=== PATIENT | male | born 1965 | race African-American/Black ===

== ENCOUNTER 2021-02-11 06:33 | Inpatient (IN) ==
[2021-02-11] MEDS ORDERED: SODIUM CHLORIDE 0.9% 1,000 ML IV STA ×2 (09:32→11:38)
[2021-02-11 10:12] LABS: Basophils % 0.4 % (0.0-0.8); Eosinophils # 0.1 10*3/uL (0.0-0.87); Eosinophils % 1.3 % (0.00-10.9); Hematocrit 47.5 VOL% (42.0-52.0); Hemoglobin 15.3 GM/DL (14.0-18.0); Immature Granulocytes % 1.1 %; Immature Granulocytes Absolute 0.06 #; Lymphocytes # 1.5 10*3/uL (1.4-4.0); Lymphocytes % 28.1 % (21.2-54.2); Mean Corpuscular HGB Conc 32.2 GM/DL (32-36); Mean Corpuscular Volume 91.2 FL (87-102); Neutrophils % 54.1 % (38.7-73.9); Platelet Count 99 T/CUMM (130-400); Red Blood Count 5.21 MC/CUMM (3.8-5.5); White Blood Count 5.5 T/CUMM (4-12)
[2021-02-11 10:29] LABS: Platelet Estimate Decreased
[2021-02-11 10:30] LABS: Burr Cells 1+; Macrocytosis 2+
[2021-02-11 10:31] LABS: Anisocytosis 2+
[2021-02-11 11:45] LABS: Alanine Aminotransferase 1584 U/L (16-61); Albumin 2.8 G/DL (3.4-5.0); Alkaline Phosphatase 182 U/L (45-117); Aspartate Amino Transferase 1001 U/L (0-37); Blood Urea Nitrogen 53 MG/DL (7-18); Carbon Dioxide 20 MMOL/L (21-32); Estimated Glom Filtration Rate 31 ML/MIN; Glucose 99 MG/DL (74-106); Osmolality,Calculated 283.1 MOS/KG (273-304); Potassium 4.7 MMOL/L (3.5-5.1); Sodium 135 MMOL/L (136-145); Total Protein 7.9 G/DL (6.4-8.2)
[2021-02-11 12:16] LABS: INR 4.8; Partial Thromboplastin Time 51.7 SECS (23.9-33.8)
[2021-02-11 12:19] LABS: PT Patient Result 47.7 SECS (10.5-12.0)
[2021-02-11 12:52] LABS: Bilirubin,Urine Negative (Negative); Blood, Urine Moderate mg/dL (Negative); Glucose,Urine (UA) >=500 mg/dL (Negative); Hyaline Casts,Urine 34 /LPF (0-3); Ketones,Urine Negative (Negative); Mucus,Urine Occasional /LPF (Occasional); Nitrite,Urine Negative (Negative); Protein,Urine >=500 MG/DL; RBC,Urine 13 /HPF (0-4); Squamous Epithelial Cell,Urine Occasional /HPF (0-10); Urine Appearance CLOUDY (Clear); Urine Color Amber (Yellow); Urine Specific Gravity 1.016 (1.001-1.035)
[2021-02-11] MEDS ORDERED: cefTRIAXone 1,000 MG in SODIUM CHLORIDE 0.9% 100 ML IV STA (12:56)
[2021-02-11] MEDS ORDERED: ALBUTEROL 2.5 MG/3 ML NEB RESP TX PRN (16:38)
[2021-02-11] MEDS ORDERED: ONDANSETRON 4 MG/2 ML VIAL IV PRN (16:38)
[2021-02-11] MEDS ORDERED: HYDROCORTISONE 100 MG VIAL IV STA (16:38)
[2021-02-11] MEDS ORDERED: LACTATED RINGERS 1,000 ML IV SCH (17:00)
[2021-02-11] MEDS: SODIUM CHLORIDE 0.9% 1,000 ML IV SCH ×2 (17:20→17:44)
[2021-02-11] MEDS: ENOXAPARIN 30 MG/0.3 ML SYRINGE SUBCUT SCH (17:27)
[2021-02-11] MEDS: DOBUTamine 500 MG/250 ML PREMIX IV PRN (17:44)
[2021-02-11] MEDS: levETIRAcetam 500 MG TABLET PO SCH (21:02)
[2021-02-12] MEDS: HYDROCORTISONE 100 MG VIAL IV SCH ×3 (00:09→17:55)
[2021-02-12 01:49] LABS: Basophils % 0.2 % (0.0-0.8); Eosinophils % 0.2 % (0.00-10.9); Hematocrit 43.4 VOL% (42.0-52.0); Hemoglobin 14.2 GM/DL (14.0-18.0); Immature Granulocytes % 1.2 %; Immature Granulocytes Absolute 0.05 #; Lymphocytes # 0.7 10*3/uL (1.4-4.0); Lymphocytes % 16.6 % (21.2-54.2); Mean Corpuscular HGB Conc 32.7 GM/DL (32-36); Mean Corpuscular Volume 88.8 FL (87-102); Mean Platelet Volume 13.2 FL (9.6-12.0); Monocytes % 7.9 % (1.7-12.7); Neutrophils % 73.9 % (38.7-73.9); Platelet Count 92 T/CUMM (130-400); Red Blood Count 4.89 MC/CUMM (3.8-5.5); Red Cell Distribution Width 18.4 % (9.3-17.3); White Blood Count 4.3 T/CUMM (4-12)
[2021-02-12 02:33] LABS: Albumin 2.3 G/DL (3.4-5.0); Bilirubin,Total 2.6 MG/DL (0.20-1.00); Calcium 8.4 MG/DL (8.5-10.1); Osmolality,Calculated 281.4 MOS/KG (273-304); Potassium 4.6 MMOL/L (3.5-5.1); Total Protein 6.9 G/DL (6.4-8.2)
[2021-02-12] MEDS: SODIUM CHLORIDE 0.9% 1,000 ML IV SCH ×2 (03:35→04:44)
[2021-02-12] MEDS: DOBUTamine 500 MG/250 ML PREMIX IV PRN ×2 (04:45→14:55)
[2021-02-12 05:10] LABS: INR 4.9; PT Patient Result 48.5 SECS (10.5-12.0)
[2021-02-12] MEDS: levETIRAcetam 500 MG TABLET PO SCH ×2 (08:54→22:00)
[2021-02-12] MEDS: PANTOPRAZOLE 40 MG TABLET PO SCH (08:54)
[2021-02-12] MEDS ORDERED: SODIUM BICARB INJ 150 MEQ in DEXTROSE 5% 1,000 ML IV SCH (09:00)
[2021-02-12] MEDS ORDERED: PANTOPRAZOLE 40 MG TABLET PO SCH (09:00)
[2021-02-12] MEDS ORDERED: SODIUM BICARB INJ 150 MEQ in DEXTROSE 5% 850 ML IV SCH (09:00)
[2021-02-12] MEDS ORDERED: HALOPERIDOL 5 MG/ML AMP IM ONE (12:55)
[2021-02-12] MEDS ORDERED: SODIUM BICARBONATE 50 MEQ/50 ML VIAL IV ONE (13:59)
[2021-02-12 15:47] LABS: Albumin 2.3 G/DL (3.4-5.0); Bilirubin,Total 2.7 MG/DL (0.20-1.00); Calcium 7.9 MG/DL (8.5-10.1); Osmolality,Calculated 284.1 MOS/KG (273-304); Potassium 4.1 MMOL/L (3.5-5.1); Total Protein 6.5 G/DL (6.4-8.2)
[2021-02-12] MEDS: ENOXAPARIN 30 MG/0.3 ML SYRINGE SUBCUT SCH (17:55)
[2021-02-12] MEDS ORDERED: DOBUTamine 500 MG/250 ML PREMIX IV SCH (18:01)
[2021-02-12] MEDS ORDERED: LORazepam 2 MG/1 ML VIAL IV PRN (18:33)
[2021-02-12] MEDS: SODIUM BICARB INJ 150 MEQ in DEXTROSE 5% 1,000 ML IV SCH (22:00)
[2021-02-13] MEDS: HYDROCORTISONE 100 MG VIAL IV SCH ×2 (02:05→19:45)
[2021-02-13 04:59] LABS: Hematocrit 37.1 VOL% (42.0-52.0); Hemoglobin 13.4 GM/DL (14.0-18.0); Immature Granulocytes % 0.7 %; Immature Granulocytes Absolute 0.04 #; Lymphocytes # 0.7 10*3/uL (1.4-4.0); Mean Corpuscular HGB Conc 36.1 GM/DL (32-36); Mean Corpuscular Volume 82.4 FL (87-102); Mean Platelet Volume 12.3 FL (9.6-12.0); Monocytes % 10.5 % (1.7-12.7); NRBC # 0.02 10*3/uL; Neutrophils % 76.8 % (38.7-73.9); Platelet Count 86 T/CUMM (130-400); Red Cell Distribution Width 17.2 % (9.3-17.3)
[2021-02-13 05:19] LABS: Hypochromasia Slight; Microcytosis Slight; Target Cells Few
[2021-02-13 05:20] LABS: Acanthocytes Few; INR 2.6; PT Patient Result 26.7 SECS (10.5-12.0); Platelet Estimate Decreased
[2021-02-13] MEDS: SODIUM BICARB INJ 150 MEQ in DEXTROSE 5% 1,000 ML IV SCH (05:20)
[2021-02-13 05:32] LABS: Albumin 2.3 G/DL (3.4-5.0); Bilirubin,Total 3.1 MG/DL (0.20-1.00); Calcium 8.1 MG/DL (8.5-10.1); Osmolality,Calculated 283.1 MOS/KG (273-304); Potassium 3.8 MMOL/L (3.5-5.1); Total Protein 6.5 G/DL (6.4-8.2)
[2021-02-13] MEDS ORDERED: LORazepam 2 MG/1 ML VIAL ONE (07:20)
[2021-02-13] MEDS ORDERED: HYDROCORTISONE 100 MG VIAL IV SCH (07:30)
[2021-02-13] MEDS ORDERED: DOBUTamine 500 MG/250 ML PREMIX IV SCH (09:10)
[2021-02-13] MEDS: PANTOPRAZOLE 40 MG TABLET PO SCH (11:06)
[2021-02-13] MEDS: levETIRAcetam 500 MG TABLET PO SCH ×2 (11:06→20:38)
[2021-02-13] MEDS: ENOXAPARIN 30 MG/0.3 ML SYRINGE SUBCUT SCH (19:43)
[2021-02-13] MEDS: METOPROLOL SUCCINATE XL 25 MG TABLET PO SCH (20:38)
[2021-02-14] MEDS: HYDROCORTISONE 100 MG VIAL IV SCH ×2 (06:28→19:50)
[2021-02-14 06:55] LABS: Basophils % 0.3 % (0.0-0.8); Hematocrit 44.6 VOL% (42.0-52.0); Immature Granulocytes % 0.5 %; Immature Granulocytes Absolute 0.03 #; Lymphocytes # 1.1 10*3/uL (1.4-4.0); Lymphocytes % 17.3 % (21.2-54.2); Mean Corpuscular HGB Conc 35.9 GM/DL (32-36); Mean Corpuscular Volume 83.8 FL (87-102); Mean Platelet Volume 12.8 FL (9.6-12.0); Monocytes % 9.8 % (1.7-12.7); NRBC # 0.04 10*3/uL; Neutrophils % 72.1 % (38.7-73.9); Platelet Count 84 T/CUMM (130-400); Red Blood Count 5.32 MC/CUMM (3.8-5.5); Red Cell Distribution Width 18.5 % (9.3-17.3); White Blood Count 6.5 T/CUMM (4-12)
[2021-02-14 07:34] LABS: Albumin 2.5 G/DL (3.4-5.0); Bilirubin,Total 3.6 MG/DL (0.20-1.00); Calcium 8.9 MG/DL (8.5-10.1); Osmolality,Calculated 277.7 MOS/KG (273-304); Potassium 4.7 MMOL/L (3.5-5.1); Total Protein 7.6 G/DL (6.4-8.2)
[2021-02-14 08:23] LABS: Hypochromasia Slight; Microcytosis 1+; Target Cells Slight
[2021-02-14 08:24] LABS: Anisocytosis 1+; Platelet Estimate Decreased; Polychromasia Slight
[2021-02-14] MEDS: levETIRAcetam 500 MG TABLET PO SCH ×2 (10:31→20:42)
[2021-02-14] MEDS: METOPROLOL SUCCINATE XL 25 MG TABLET PO SCH ×2 (10:32→20:42)
[2021-02-14] MEDS: PANTOPRAZOLE 40 MG TABLET PO SCH (10:32)
[2021-02-14] MEDS ORDERED: FUROSEMIDE 40 MG/4 ML VIAL IV ONE (14:22)
[2021-02-14] MEDS ORDERED: FUROSEMIDE 80 MG TABLET PO SCH (14:30)
[2021-02-14] MEDS: ENOXAPARIN 30 MG/0.3 ML SYRINGE SUBCUT SCH (17:22)
[2021-02-14] MEDS ORDERED: SODIUM CHLORIDE 0.9% 250 ML IV ONE ×3 (21:11→23:00)
[2021-02-15 00:03] LABS: ABG Base Excess -16.2 MMOL/L (-2.5-2.5); ABG HCO3 12.7 MMOL/L (20-26); ABG Oxygen Saturation 99.1 % (95-100); ABG PH 7.328 (7.35-7.45); ABG TCO2 6.9 MMOL/L (23-27); Allen Test Positive
[2021-02-15 00:12] LABS: ABG PCO2 15.4 MM HG (35-48)
[2021-02-15] MEDS: SODIUM CHLORIDE 0.9% 1,000 ML IV SCH ×2 (01:17→14:50)
[2021-02-15] MEDS: HYDROCORTISONE 100 MG VIAL IV SCH ×2 (06:35→18:00)
[2021-02-15 08:54] LABS: Basophils % 0.1 % (0.0-0.8); Hemoglobin 15.1 GM/DL (14.0-18.0); Immature Granulocytes % 0.7 %; Immature Granulocytes Absolute 0.06 #; Lymphocytes # 1.2 10*3/uL (1.4-4.0); Lymphocytes % 14.1 % (21.2-54.2); Mean Corpuscular HGB Conc 33.6 GM/DL (32-36); Mean Corpuscular Volume 86.2 FL (87-102); Monocytes % 7.7 % (1.7-12.7); NRBC # 0.07 10*3/uL; Neutrophils % 77.4 % (38.7-73.9); Platelet Count 82 T/CUMM (130-400); Red Blood Count 5.22 MC/CUMM (3.8-5.5); Red Cell Distribution Width 19.2 % (9.3-17.3); White Blood Count 8.3 T/CUMM (4-12)
[2021-02-15] MEDS ORDERED: FUROSEMIDE 80 MG TABLET PO SCH (09:00)
[2021-02-15] MEDS: PANTOPRAZOLE 40 MG TABLET PO SCH (09:15)
[2021-02-15] MEDS: levETIRAcetam 500 MG TABLET PO SCH (09:15)
[2021-02-15 09:23] LABS: Calcium 8.6 MG/DL (8.5-10.1); Potassium 5.5 MMOL/L (3.5-5.1)
[2021-02-15 09:24] LABS: Osmolality,Calculated 285.4 MOS/KG (273-304)
[2021-02-15] MEDS ORDERED: DEXTROSE 50% 25 GM/50 ML VIAL IV ONE (09:34)
[2021-02-15 09:37] LABS: Burr Cells 1+; Macrocytosis 1+; Platelet Estimate Decreased
[2021-02-15 09:38] LABS: Anisocytosis Slight
[2021-02-15] MEDS: DEXTROSE 50% 25 GM/50 ML VIAL IV PRN ×2 (09:45→20:24)
[2021-02-15] MEDS ORDERED: SODIUM POLYSTYRENE SULFATE 15 GM/60 ML BOTTLE RECTAL ONE (11:15)
[2021-02-15] MEDS: ENOXAPARIN 30 MG/0.3 ML SYRINGE SUBCUT SCH (16:48)
[2021-02-16] MEDS: SODIUM CHLORIDE 0.9% 1,000 ML IV SCH ×2 (01:15→04:44)
[2021-02-16] MEDS: DEXTROSE 50% 25 GM/50 ML VIAL IV PRN (04:51)
[2021-02-16] MEDS: HYDROCORTISONE 100 MG VIAL IV SCH (06:40)
[2021-02-16 07:15] LABS: Hematocrit 45.5 VOL% (42.0-52.0); Hemoglobin 15.4 GM/DL (14.0-18.0); Immature Granulocytes % 0.6 %; Immature Granulocytes Absolute 0.05 #; Lymphocytes # 1.5 10*3/uL (1.4-4.0); Mean Corpuscular HGB Conc 33.8 GM/DL (32-36); Mean Corpuscular Volume 86.7 FL (87-102); NRBC # 0.08 10*3/uL; Neutrophils % 74.4 % (38.7-73.9); Platelet Count 75 T/CUMM (130-400); Red Blood Count 5.25 MC/CUMM (3.8-5.5); Red Cell Distribution Width 19.3 % (9.3-17.3); White Blood Count 8.3 T/CUMM (4-12)
[2021-02-16 07:39] LABS: Calcium 7.7 MG/DL (8.5-10.1); Osmolality,Calculated 297.2 MOS/KG (273-304); Potassium 5.9 MMOL/L (3.5-5.1)
[2021-02-16] MEDS ORDERED: SODIUM POLYSTYRENE SULFATE 15 GM/60 ML BOTTLE PO ONE (08:01)
[2021-02-16] MEDS ORDERED: INSULIN REGULAR 10 UNIT, CALCIUM GLUCONATE 1,000 MG in DEXTROSE 10% 250 ML IV ONE (08:30)
[2021-02-16 08:41] LABS: Anisocytosis 2+; Burr Cells 1+; Macrocytosis 2+; Platelet Estimate Decreased
[2021-02-16 08:42] LABS: Poikilocytosis Slight
[2021-02-16] MEDS: PANTOPRAZOLE 40 MG TABLET PO SCH (09:39)
[2021-02-16] MEDS ORDERED: LORazepam 2 MG/1 ML VIAL IV PRN (11:05)
[2021-02-16] MEDS: ENOXAPARIN 30 MG/0.3 ML SYRINGE SUBCUT SCH (18:00)
[2021-02-17] MEDS ORDERED: TUBERCULIN SKIN TEST 0.1 ML SYRINGE INTRADERM ONE (08:00)
[2021-02-17] MEDS: PANTOPRAZOLE 40 MG TABLET PO SCH (10:13)
[2021-02-17 11:35] VITALS: BP 59/43
[2021-02-17] MEDS ORDERED: fentaNYL 25 MCG/HR PATCH TRANSDERM SCH (12:00)
== END 2021-02-17 13:58 | disposition expired | DRG 194 ==
LOC: N.ED 06:33 → SUATTDRO 16:38 → N.EDINP 16:38 → N.ICU 19:53 → N.TELES 02-13 20:55 → N.4E 02-16 23:24
PROVIDERS: ADMIT Family Medicine; ATTEND Hospitalist